=== PATIENT | female | born 1950 | race African-American/Black ===

== ENCOUNTER 2017-01-27 10:20 | Emergency (ER) | payer MEDICARE ==
[~2017-01-27] VITALS: Ht 170.2 cm; Wt 70.0 kg
[~2017-01-27 10:20] MED LIST: AMLO5TAB4 PO; BENA20TA3 PO
[2017-01-27 10:21] VITALS: BP 170/100
== END 2017-01-27 13:43 | disposition home or self-care (01) ==
LOC: ER 10:47
DX: M54.5 Low back pain (principal); I10 Essential (primary) hypertension; F17.200 Nicotine dependence, unspecified, uncomplicated
CPT/HCPCS: 72110; 72170; 99284

== ENCOUNTER 2017-01-29 20:36 | Emergency (ER) | payer MEDICARE ==
[~2017-01-29] VITALS: Ht 165.1 cm; Wt 59.0 kg
[2017-01-29] MEDS ORDERED: MORPHINE SULFATE 4 MG/ML CPJ (NOT FOR IM USE) IV ONE (21:15)
[2017-01-29 21:24] LABS: BASOPHILS % 1.1 % (0.0-2.0); EOSINOPHILS % 0.3 % (0.0-5.0); HEMATOCRIT. 41.7 % (36.0-48.0); LYMPHOCYTES % 21.2 % (20.0-50.0); MEAN CORPUSCULAR VOLUME 92.1 fL (81.0-99.0); MEAN PLATELET VOLUME 8.5 fl (7.4-10.4); MONOCYTES % 9.4 % (2.0-8.0); PLATELET 288 x1000/uL (130-400); RED BLOOD CELL COUNT 4.52 mill/uL (4.2-5.4)
[2017-01-29 21:27] LABS: INR 1.1; PROTHROMBIN TIME 11.6 sec
[2017-01-29 21:34] LABS: CARBON DIOXIDE 29 mEq/L (21-32); CHLORIDE 98 mEq/L (98-107)
[2017-01-29] MEDS ORDERED: IBUPROFEN 800MG TABLET PO ONE (22:45)
[2017-01-29 23:18] VITALS: BP 120/75
== END 2017-01-30 00:25 | disposition home or self-care (01) ==
LOC: ER 20:38
DX: M54.9 Dorsalgia, unspecified (principal); R51 Headache; M54.2 Cervicalgia; D68.8 Other specified coagulation defects; I10 Essential (primary) hypertension; M25.559 Pain in unspecified hip; W17.89XA Other fall from one level to another, initial encounter; Y93.E1 Activity, personal bathing and showering; Y92.091 Bathroom in other non-institutional residence as the place of occurrence of the external cause; Y99.8 Other external cause status
CPT/HCPCS: 36415; 70450; 72125; 72170; 80053; 85025; 85610; 96374; 99285; J2270

== ENCOUNTER 2019-02-05 23:16 | Emergency (ER) | payer MEDICARE ==
[~2019-02-05] VITALS: Ht 170.2 cm; Wt 62.0 kg
[~2019-02-05 23:16] MED LIST changes: +BENA20TA10 PO; -BENA20TA3 PO
[2019-02-05] MEDS ORDERED: ONDANSETRON HCL 4MG/2ML INJ IV STA (23:45)
[2019-02-05] MEDS ORDERED: SODIUM CHLORIDE 0.9% 1,000 ML IV ONE (23:45)
[2019-02-05] MEDS ORDERED: MORPHINE SULFATE 4 MG/ML CPJ (NOT FOR IM USE) IV STA (23:45)
[2019-02-06 00:04] LABS: BASOPHILS % 0.6 % (0.0-2.0); EOSINOPHILS % 0.3 % (0.0-5.0); HEMATOCRIT. 43.6 % (36.0-48.0); HEMOGLOBIN. 14.7 g/dL (12.0-16.0); LYMPHOCYTES % 14.7 % (20.0-50.0); MEAN CORPUSCULAR HEMOGLOBIN 31.1 pg (28.0-32.0); MEAN CORPUSCULAR VOLUME 92.3 fL (81.0-99.0); MEAN PLATELET VOLUME 8.5 fl (7.4-10.4); MONOCYTES % 12.4 % (2.0-8.0); PLATELET 336 x1000/uL (130-400); RED BLOOD CELL COUNT 4.73 mill/uL (4.2-5.4); RED CELL DISTRIBUTION WIDTH 13.6 % (11.6-14.6)
[2019-02-06 00:09] LABS: CHLORIDE 105 mEq/L (98-107)
[2019-02-06 00:11] LABS: PARTIAL THROMBOPLASTIN TIME 23.6 sec (23.4-31.0); PROTHROMBIN TIME 10.7 sec (9.6-11.0)
[2019-02-06 01:30] LABS: CLARITY URINE CLOUDY (CLEAR); COLOR URINE DARK YELLOW (YELLOW); KETONES URINE NEGATIVE (NEGATIVE); LEUKOCYTE ESTERASE URINE NEGATIVE (NEGATIVE); NITRITE URINE NEGATIVE (NEGATIVE); OCCULT BLOOD URINE NEGATIVE (NEGATIVE); PROTEIN URINE 1+ (NEGATIVE); SPECIFIC GRAVITY URINE 1.019 (1.005-1.030); UROBILINOGEN URINE 0.2 E.U./dL (0.2-1.0)
[2019-02-06] MEDS ORDERED: LEVOFLOXACIN 750MG PREMIX 150 ML IV ONE (01:30)
[2019-02-06] MEDS ORDERED: METRONIDAZOLE 500 MG PREMIX 100 ML IV ONE (01:30)
[2019-02-06 03:16] VITALS: BP 102/67
== END 2019-02-06 03:56 | disposition home or self-care (01) ==
LOC: ER 23:16
DX: K52.9 Noninfective gastroenteritis and colitis, unspecified (principal); N39.0 Urinary tract infection, site not specified; I12.9 Hypertensive chronic kidney disease with stage 1 through stage 4 chronic kidney disease, or unspecified chronic kidney disease; N18.9 Chronic kidney disease, unspecified
CPT/HCPCS: 36415; 71045; 74176; 80053; 81003; 83690; 85025; 85610; 85730; 93005; 96361; 96365; 96368; 96375; 99284; J1956; J2270; J2405; J3490; J7030